=== PATIENT | male | born 2000 ===

== ENCOUNTER 2022-02-03 15:17 | Emergency (ER) | payer SELFPAY ==
[2022-02-03] MEDS ORDERED: Lidocaine 2% Jelly 10 ML Urojet MUCMEM ONE (16:47)
[2022-02-03] MEDS ORDERED: Sodium Chloride 0.9% 10 ML Syringe FLUSH PRN (16:47)
[2022-02-03] MEDS ORDERED: Sodium Chloride 0.9% 1,000 ML IV ONE ×6 (16:49→21:53)
[2022-02-03 17:25] LABS: ANION GAP 24.4 mEq/L (7-13)
[2022-02-03] MEDS ORDERED: HYDROmorphone 1 MG/ML Syringe IVPUSH ONE (17:35)
[2022-02-03] MEDS ORDERED: Ondansetron 4 MG/2 ML SDV IV ONE (17:35)
[2022-02-03 18:20] LABS: AMPHETAMINES,URINE NEGATIVE (NEGATIVE); BARBITURATES,URINE NEGATIVE (NEGATIVE); BENZODIAZEPINE,URINE NEGATIVE (NEGATIVE); MDMA (ECSTASY), URINE NEGATIVE (NEGATIVE); METHADONE,URINE NEGATIVE (NEGATIVE); METHAMPHETAMINES,URINE NEGATIVE (NEGATIVE); OPIATES,URINE NEGATIVE (NEGATIVE); OXYCODONE,URINE NEGATIVE (NEGATIVE); PHENCYCLIDINE,URINE NEGATIVE (NEGATIVE); TCA,URINE NEGATIVE (NEGATIVE)
[2022-02-03 19:43] LABS: CORONAVIRUS COVID-19 NAA NEGATIVE (NEGATIVE); RESPIRATORY SYNCYTIAL VIR NAA NEGATIVE (NEGATIVE)
[2022-02-03 20:06] LABS: O2 DELIVERY DEVICE ROOM AIR
[2022-02-03 20:20] LABS: BICARBONATE,VENOUS 19 mmol/l (19-25); O2 SATURATION VENOUS 41 % (60-80); PCO2 VENOUS 48 mmHg (41-51); PH,VENOUS 7.22 (7.31-7.41); PO2 VENOUS 35 mmHg (35-42)
[2022-02-03 20:38] LABS: HEMOGLOBIN A1C 5.6 % (<5.7)
[2022-02-03 20:41] LABS: ANION GAP 17.4 mEq/L (7-13)
[2022-02-03] MEDS ORDERED: Calcium Chloride 10% 1 GM/10 ML Syringe IVPUSH ONE ×2 (21:06→23:24)
[2022-02-03 22:48] LABS: O2 DELIVERY DEVICE ROOM AIR
[2022-02-03 22:55] LABS: ALLEN TEST Performed; BASE EXCESS ARTERIAL -11 mmol/L ((-2)-(+3)); O2 SATURATION ARTERIAL 96 % (95-100); PCO2 ARTERIAL 34 mmHg (35-45); PO2 ARTERIAL 82 mmHg (70-100)
[2022-02-03 23:06] LABS: ANION GAP 18.1 mEq/L (7-13)
[2022-02-08 12:47] LABS: C.TRACHOMATIS BY TMA Positive (Negative); N.GONORRHOEAE BY TMA Negative (Negative)
== END 2022-02-04 00:05 | disposition home or self-care (01) ==
LOC: DL.ED 15:17
DX: K52.9 Noninfective gastroenteritis and colitis, unspecified (principal); N17.9 Acute kidney failure, unspecified; E86.0 Dehydration; Z20.822 Contact with and (suspected) exposure to COVID-19
CPT/HCPCS: 0241U; 36415; 36600; 74176; 80053; 80305; 81001; 82150; 82803; 83036; 83605; 83690; 84681; 85025; 86140; 87081; 87430; 87491; 87563; 87591; 99284; 99285; J1170; J2405; J7030